=== PATIENT | female | born 1970 | race Caucasian/White ===

== ENCOUNTER 2019-02-08 18:10 | Emergency (ER) | payer BC, OTHER ==
[2019-02-08 18:58] VITALS: BP 119/67
[2019-02-08] MEDS ORDERED: Albuterol/Ipratropium NEB.SOL* Albuterol 2.5 MG/Ipratropium 0.5 MG 3 ML INH ONE (19:02)
--- NOTE | 2019-02-08 19:05 | UC ---
Respiratory Complaint HPI - HPI Summary HPI Summary: 48-year-old female who has had a cough for 3 weeks which is now productive with green sputum. She denies any history of asthma, she is a nonsmoker. - History of Current Complaint Chief Complaint: UCRespiratory Stated Complaint: COUGH Time Seen by Provider: 02/08/19 18:51 Hx Obtained From: Patient Hx Last Menstrual Period: 02/01/19 ?: No Onset/Duration: Gradual Onset Timing: Constant Severity Initially: Mild Severity Currently: Mild Pain Intensity: 0 Character: Cough: Productive, Sputum Description: Aggravating Factors: Nothing Alleviating Factors: Nothing - Sputum. Associated Signs And Symptoms: Positive: URI - Allergies/Home Medications Allergies/Adverse Reactions: Allergies Allergy/AdvReac Type Severity Reaction Status Date / Time No Known Allergies Allergy Verified 02/08/19 18:58 Home Medications: Home Medications Ibuprofen 2 tab PO Q6H PRN 02/08/19 [History Confirmed 02/08/19] PMH/Surg Hx/FS Hx/Imm Hx Previously Healthy: Yes - Surgical History Surgical History: None - Family History Known Family History: Positive: Non-Contributory - Social History Alcohol Use: Weekly Substance Use Type: None Smoking Status (MU): Former Smoker Length of Time of Smoking/Using Tobacco: 2003 Review of Systems All Other Systems Reviewed And Are Negative: Yes Respiratory: Positive: Shortness Of Breath - Patient states she has mild shortness of breath., Cough Is Patient Immunocompromised?: No Physical Exam Triage Information Reviewed: Yes Appearance: Well-Appearing, No Pain Distress, Well-Nourished Vital Signs: Initial Vital Signs Temp 97.3 F 02/08/19 18:54 Pulse 77 02/08/19 18:54 Resp 16 02/08/19 18:54 BP 119/67 02/08/19 18:54 Pulse Ox 100 02/08/19 18:54 Vital Signs Reviewed: Yes Eyes: Positive: Conjunctiva Clear ENT: Positive: Pharynx normal, TMs normal, Uvula midline Neck: Positive: Supple, Nontender, No Lymphadenopathy Respiratory: Positive: No respiratory distress, No accessory muscle use, Rhonchi , Wheezing Cardiovascular: Positive: RRR, No Murmur, Pulses Normal, Brisk Capillary Refill Musculoskeletal Exam: Normal Neurological Exam: Normal Psychological Exam: Normal Skin Exam: Normal Respiratory Course/Dx - Course Course Of Treatment: Chest x-ray: Possible left lower lobe infiltrate as read by myself and Dr. Abbott. I'm going to treat the patient with doxycycline 100 mg by mouth twice a day for 10 days. I'm also putting her on tapering dose of prednisone. [place] of [place] for the next 8 days. She is to follow-up with her primary care provider for recheck when she returns. In the meantime if she has any worsening symptoms, shortness of breath difficulty breathing she is to go to the local emergency room. The patient was given a DuoNeb treatment which improved aeration and decreased wheezing. - Differential Dx/Diagnosis Provider Diagnosis: Community acquired pneumonia, Bronchitis Discharge - Sign-Out/Discharge Documenting (check all that apply): Patient Departure All imaging exams completed and their final reports reviewed: No - Discharge Plan Condition: Fair Disposition: HOME Prescriptions: DOXYcycline CAP(*) [DOXYcycline 100MG CAP(*)] 100 mg PO BID 10 Days #20 cap predniSONE TAB* [Deltasone 10 MG TAB*] 10 mg PO DAILY 12 Days #30 tab Patient Education Materials: Community Acquired Pneumonia (DC) Referrals: Nita Sweeney MD [Primary Care Provider] - Additional Instructions: Increase fluids, take the prednisone with food, no dairy products, antacids or multivitamins 2 hours before you take the doxycycline and 2 hours after you take the doxycycline however be sure and take it with food. If you develop any worsening symptoms, shortness of breath or difficulty breathing go to an emergency room area and follow-up with your primary care provider after you return from your trip for a recheck. - Billing Disposition and Condition Condition: FAIR Disposition: Home - Attestation Statements Provider Attestation: I was available for consult. This patient was seen by the CHRISTINA. The patient was not presented to, seen by, or examined by me. -Arpita
--- NOTE | 2019-02-09 09:35 | UC ---
- Progress Note Progress Note: Patient Name: GASTON SEGOVIA Medical Record#: [id number] Ordering Physician: Jenae De La Rosa BEND UP Acct.#: [id number] : 1970 Age: 48 Sex: F Location: [facility] [place] Exam Date: 02/08/191901 ADM Status: DEP ER Order Information: CHEST PA & LAT 2 VWS Accession Number: [id number] CPT: 77709 HISTORY: cough for 3 weeks, fever COMPARISONS: July 20, 2009 VIEWS: 4: Frontal dual-energy and lateral views of the chest. FINDINGS: CARDIOMEDIASTINAL SILHOUETTE: The cardiomediastinal silhouette is normal. LISA: The lisa are normal. PLEURA: The costophrenic angles are sharp. No pleural abnormalities are noted. LUNG PARENCHYMA: The lungs are clear. The left lower lobe "infiltrate" described on the preliminary assessment is not appreciated on the submitted images. ABDOMEN: The upper abdomen is clear. There is no subphrenic gas. BONES AND SOFT TISSUES: No bone or soft tissue abnormalities are noted. OTHER: None. IMPRESSION: NO ACTIVE CARDIOPULMONARY DISEASE. R2 Preliminary Imaging Read R2 <Electronically signed by Dusty Linton MD in OV> 02/09/19755 Dictated By: Dusty Linton MD Dictated Date/Time: 02/09/19755 Transcribed Date/Time: 02/09/19 075 Copy to: CC:Nita Sweeney MD; Jenae De La Rosa BEND UP; Eleonora Abbott MD Imaging - [facility] Imaging [facility] [address] [address] ph [phone]) ph ([phone]) ph ([phone]) This report is only to be considered final once signed by the Provider(s) as displayed in the "<Electronically Signed by >" field (s). Absence of a signature indicates the report is in a draft status and still needs to be finalized. In the event this document was created by someone other than the signing Provider, the individual initiating the document will be listed in the "Entered by:" or "Dictated by:" flowers. 1 of 2 Please call pt - let her know radiologist did not think pneumonia - continue with antibiotic for other lung infections (bronchitis) Course/Dx - Diagnoses Provider Diagnoses: Community acquired pneumonia, Bronchitis Discharge - Sign-Out/Discharge Documenting (check all that apply): Post-Discharge Follow Up All imaging exams completed and their final reports reviewed: Yes - Discharge Plan Condition: Fair Disposition: HOME Prescriptions: DOXYcycline CAP(*) [DOXYcycline 100MG CAP(*)] 100 mg PO BID 10 Days #20 cap predniSONE TAB* [Deltasone 10 MG TAB*] 10 mg PO DAILY 12 Days #30 tab Patient Education Materials: Community Acquired Pneumonia (DC) Referrals: Nita Sweeney MD [Primary Care Provider] - Additional Instructions: Increase fluids, take the prednisone with food, no dairy products, antacids or multivitamins 2 hours before you take the doxycycline and 2 hours after you take the doxycycline however be sure and take it with food. If you develop any worsening symptoms, shortness of breath or difficulty breathing go to an emergency room area and follow-up with your primary care provider after you return from your trip for a recheck. - Billing Disposition and Condition Condition: FAIR Disposition: Home
== END 2019-02-08 19:38 | disposition home or self-care (01) ==
LOC: UCCORT 18:10
DX: J18.8 Other pneumonia, unspecified organism (principal); J40 Bronchitis, not specified as acute or chronic; Z87.891 Personal history of nicotine dependence
CPT/HCPCS: 71046; 99212; A9270-GY; G0463